=== PATIENT | male | born 1935 | race Caucasian/White ===

== ENCOUNTER 2025-05-26 00:05 | Observation (INO) ==
[2025-05-26 00:52] LABS: Hematocrit (blood only) 44.0 % (42.0-52.0); Hemoglobin 14.2 g/dL (14.0-18.0); Immature Granulocytes # (auto) 0.04 K/uL (0.01-0.20); Immature Granulocytes % (auto) 0.4 %; Mean Corpuscular Hemoglobin 26.8 pg (25.0-34.0); Mean Corpuscular Volume 83.2 fL (80.0-100.0); Platelet Count 321 K/uL (130-400); RDW Standard Deviation 42.0 fL (36.4-46.3); Red Blood Count 5.29 M/uL (4.70-6.10); White Blood Count 11.30 K/ul (4.8-10.8)
[2025-05-26 01:10] LABS: Alanine Aminotransferase 9.0 U/L (7-52); Albumin Globulin Ratio 1.4 (0.9-2); Albumin Level 4.2 gm/dl (3.4-5.0); Alkaline Phosphatase 67.0 U/L (34-104); Anion Gap 9.0 (3-11); Bilirubin,Total 0.4 mg/dl (0.2-1.0); Blood Urea Nitrogen 25.0 mg/dl (6-23); Calcium 9.0 mg/dl (8.6-10.3); Carbon Dioxide 26.0 mmol/L (21-32); Chloride 106.0 mmol/L (98-107); Creatinine Clr Calc Pharmacy 47.5 ml/min; Globulin 2.9 gm/dl (2.5-4.0); Glucose 141.0 mg/dl (70-99(Fasting)); Lipase 23.0 U/L (11-82); Potassium 3.9 mmol/L (3.5-5.1); Sodium 141.0 mmol/L (136-145); Total Protein 7.1 gm/dl (6.0-8.3)
--- NOTE | 2025-05-26 01:13 | Emergency Department Note ---
Impression & Plan Left-sided chest pain Admit to the 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 Patient was resting comfortably in a recliner. Patient's explains that the patient turned quite pale during this episode. laboratory studies revealed no leukocytosis or anemia. Renal function was normal. Glucose was 141. Troponin was unremarkable. Chest x-ray revealed some mild peribronchial cuffing but no other acute findings. EKG showed no acute findings of ischemia. Patient's pain initially subsided on its own but then returned and seem to radiate into his back. Patient was given a dose of IV fentanyl and went for CTA of the chest. Patient has a very strong family history of heart disease and given the description of symptoms by the patient's , I felt he would require further inpatient care and cardiology workup. Care/management discussed with: oncology transplant network manager and [facility] Triage Nursing notes: reviewed and agree With them. Vital Signs: reviewed and unremarkable Additional History obtained from: the patient's who is at the bedside Differential Diagnosis: cardiac ischemia, aortic dissection, STEMI, NSTEMI, costochondritis Diagnostics, independently interpreted by me: ECG: normal sinus rhythm at a rate of 61 with first-degree AV block. There is no ST segment elevation or signs of ischemia. There is no ectopy. repeat ECG: Normal sinus rhythm at a rate of 61 with first-degree AV block. There is no ST segment elevation. Slight ST segment depression in leads I and aVL Compared to original ECG Cardiac Monitoring: Sinus bradycardia at 59 Imaging studies: portable chest x-ray: mild peribronchial cuffing with no obvious consolidation or infiltrate as per my independent interpretation CTA of the chest: As per [facility] HPI: 89 year old Male arrives for evaluation of Left arm pain left chest pain. presents with a sudden onset of discomfort in his left upper arm, left shoulder and left chest that started approximately 75 minutes ago. Patient was resting comfortably in a recliner. Patient turned quite pale during this episode according to his . He denies ever having an episode like this in the past. 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 Pupils are equal, round, and reactive to light. Extraocular eye muscles are intact, and sclera are anicteric. Nose - moist nasal mucosa without discharge. Mouth - moist buccal mucosa. Oropharynx is nonerythematous and there is no tonsillar exudate or edema noted. Neck: Supple; no JVD, nuchal rigidity, cervical lymphadenopathy. Heart: Regular rate and rhythm. There is a normal S1 and S2 with no murmurs, clicks, or gallops appreciated. Lungs: Clear to auscultation bilaterally with no wheezes, rales, or rhonchi. Abdomen: Soft, completely nontender, nondistended, with good bowel sounds. There are no palpable pulsatile masses or hepatosplenomegaly. There is no guarding, rigidity, or rebound noted. Extremities: No evidence of cyanosis, clubbing, or edema. There are easily palpable peripheral pulses. Skin: warm and dry with good turgor and no rashes. Emergency department treatment: youth nutritional monitor, IV fentanyl, IV Zofran Emergency Department course: Patient was evaluated in room B-8. A complete history and physical was performed. An order was placed for continuous cardiac monitoring patient was in sinus bradycardia at a rate of 59. Twelve-lead EKG was obtained. laboratory studies were drawn as above. Portable chest x-ray was performed. Patient's chest discomfort returned and he was given a dose of IV fentanyl and IV Zofran. He went for CTA of the chest. upon repeat assessment, the patient was feeling better again. I discussed the case with the [facility] Hospitalist and they will evaluate for further inpatient care. I discussed the case with the [facility] Hospitalist and they will evaluate for further inpatient care. Past Med/Surg History Problem List (Updated 05/26/25 @ 04:04 by Mary Silva DO) Left-sided chest pain (Acute) Squamous cell carcinoma of right vocal cord (Chronic 04/28/24) Medical History Skin cancer Basal cell Diverticulosis Enlarged prostate Hematuria IBS (irritable bowel syndrome) Chronic kidney disease Fall Hoarseness Subdural hematoma Traumatic brain injury AAA (abdominal aortic aneurysm) Chronic rhinitis GERD (gastroesophageal reflux disease) Hyperlipidemia Type 2 diabetes mellitus Actinic keratosis Surgical History Status post Mohs surgery History of tonsillectomy and adenoidectomy Status post appendectomy S/P craniotomy Evacuation of subdural hematoma 12/14/23 History of surgery Left eye lower lid repair History of cystoscopy Family History Mother , 97yo Myocardial infarction Father , 42yo Myocardial infarction Brother S/P CABG x 5 Sister No problems noted. Son Diabetes Daughter No problems noted. Other Family history non-contributory Social History Smoking Status: Never smoker Second Hand Exposure: No; Do You Dip or Chew Tobacco: No; Hx Alcohol Use: No Hx Substance Use: No Preferred Language: [place] Communication Ability: Effective Visual Impairment: No Limitations Purchasing Expeditor Required: No Beliefs That Will Affect Care: None marital status: Current Living Situation: Spouse current occupational status: employed current occupation: Hand [employer] How many Children do You have: 2 Feels Safe at Home: Yes Diet: regular caffeine: No during the past year weight has: remained stable Assistive Devices: Glasses Allergies Allergies Allergy/AdvReac Type Severity Reaction Status Date / Time statins AdvReac Intermediate Muscle Pain Uncoded 07/07/24 10:53 Home Meds Home Medications Medication Instructions Recorded Confirmed No Known Home Medications 05/07/25 05/26/25 Results & Data (ED) Vital Signs Vital Signs - 24 hr 05/26/25 00:09 05/26/25 00:18 05/26/25 00:20 Temperature 36.9 C Temperature Source Temporal Artery Scan Pulse Rate 64 Pulse Rate [Apical] Pulse Rate from SpO2 Sensor Respiratory Rate 18 Respiratory Effort / Characteristics Non-Labored Spontaneous Respiratory Depth Normal Respiratory Pattern Regular Blood Pressure 148/74 H 144/98 H Blood Pressure [Right Arm] Blood Pressure Mean 98 106 Blood Pressure Mean [Right Arm] Blood Pressure Position Sitting Pulse Oximetry 96 95 Oxygen Delivery Method Room Air Room Air Sepsis Recent Fever Within 48 Hours No Sepsis New/Unexplained Change in Mental Status N/A Sepsis Action Taken by Nursing No Action Required 05/26/25 00:21 05/26/25 00:24 05/26/25 00:24 Temperature Temperature Source Pulse Rate 59 L 61 Pulse Rate [Apical] 59 L Pulse Rate from SpO2 Sensor 61 Respiratory Rate 12 15 Respiratory Effort / Characteristics Non-Labored Spontaneous Respiratory Depth Normal Respiratory Pattern Regular Blood Pressure Blood Pressure [Right Arm] 144/98 H Blood Pressure Mean Blood Pressure Mean [Right Arm] 113 Blood Pressure Position Pulse Oximetry 95 96 Oxygen Delivery Method Room Air Room Air Sepsis Recent Fever Within 48 Hours Sepsis New/Unexplained Change in Mental Status Sepsis Action Taken by Nursing 05/26/25 00:30 05/26/25 01:00 05/26/25 01:30 Temperature Temperature Source Pulse Rate 63 61 Pulse Rate [Apical] 62 Pulse Rate from SpO2 Sensor 62 61 Respiratory Rate 19 20 18 Respiratory Effort / Characteristics Non-Labored Spontaneous Respiratory Depth Normal Respiratory Pattern Regular Blood Pressure 140/72 139/72 Blood Pressure [Right Arm] 151/74 H Blood Pressure Mean 94 94 Blood Pressure Mean [Right Arm] 99 Blood Pressure Position Pulse Oximetry 96 95 96 Oxygen Delivery Method Room Air Room Air Room Air Sepsis Recent Fever Within 48 Hours Sepsis New/Unexplained Change in Mental Status Sepsis Action Taken by Nursing 05/26/25 01:30 05/26/25 02:00 05/26/25 02:18 Temperature Temperature Source Pulse Rate 62 60 67 Pulse Rate [Apical] Pulse Rate from SpO2 Sensor 63 61 66 Respiratory Rate 18 23 18 Respiratory Effort / Characteristics Respiratory Depth Respiratory Pattern Blood Pressure 151/74 H 154/81 H 145/107 H Blood Pressure [Right Arm] Blood Pressure Mean 99 105 119 Blood Pressure Mean [Right Arm] Blood Pressure Position Pulse Oximetry 96 96 91 Oxygen Delivery Method Room Air Room Air Room Air Sepsis Recent Fever Within 48 Hours Sepsis New/Unexplained Change in Mental Status Sepsis Action Taken by Nursing 05/26/25 03:00 Temperature Temperature Source Pulse Rate 64 Pulse Rate [Apical] Pulse Rate from SpO2 Sensor Respiratory Rate 19 Respiratory Effort / Characteristics Respiratory Depth Respiratory Pattern Blood Pressure 130/65 Blood Pressure [Right Arm] Blood Pressure Mean 86 Blood Pressure Mean [Right Arm] Blood Pressure Position Pulse Oximetry 96 Oxygen Delivery Method Room Air Sepsis Recent Fever Within 48 Hours Sepsis New/Unexplained Change in Mental Status Sepsis Action Taken by Nursing Laboratory Data 05/26/25 00:25 05/26/25 00:25 Lab Results 05/26/25 Range/Units 00:25 WBC 11.30 H (4.8-10.8) K/ul RBC 5.29 (4.70-6.10) M/uL Hgb 14.2 (14.0-18.0) g/dL Hct 44.0 (42.0-52.0) % MCV 83.2 (80.0-100.0) fL MCH 26.8 (25.0-34.0) pg MCHC 32.3 (32.0-36.0) g/dL RDW Std Deviation 42.0 (36.4-46.3) fL RDW Coeff of Herbert 13.9 (11.5-14.5) % Plt Count 321 (130-400) K/uL MPV 9.5 (9.4-12.4) fL Immature Gran % (Auto) 0.4 % Neut % (Auto) 74.0 % Lymph % (Auto) 13.4 % [place] % (Auto) 9.1 % Eos % (Auto) 2.7 % Baso % (Auto) 0.4 % Neut # (Auto) 8.38 H (1.40-6.50) K/uL Lymph # (Auto) 1.51 (1.20-3.40) K/uL [place] # (Auto) 1.03 H (0.11-0.59) K/uL Eos # (Auto) 0.30 (0.00-0.50) K/uL Baso # (Auto) 0.04 (0.00-0.20) K/uL Immature Gran # (Auto) 0.04 (0.01-0.20) K/uL Sodium 141 (136-145) mmol/L Potassium 3.9 (3.5-5.1) mmol/L Chloride 106 (98-107) mmol/L Carbon Dioxide 26 (21-32) mmol/L Anion Gap 9 (3-11) BUN 25 H (6-23) mg/dl Creatinine 1.03 (0.6-1.4) mg/dl Est Cr Clr Drug Dosing 47.5 ml/min eGFR 69.87 BUN/Creatinine Ratio 24.3 H (10-20) Glucose 141 H (70-99(Fasting)) mg/dl Calcium 9.0 (8.6-10.3) mg/dl Total Bilirubin 0.4 (0.2-1.0) mg/dl AST 15 (13-39) U/L ALT 9 (7-52) U/L Alkaline Phosphatase 67 (34-104) U/L Troponin I High Sens 12.9 (0-20) pg/ml Total Protein 7.1 (6.0-8.3) gm/dl Albumin 4.2 (3.4-5.0) gm/dl Globulin 2.9 (2.5-4.0) gm/dl Albumin/Globulin Ratio 1.4 (0.9-2) Lipase 23 (11-82) U/L Administered Medications Discontinued Medications Fentanyl Citrate (Fentanyl Citrate Pf 100 Mcg/2 Ml Vial) 50 mcg IV NOW STA Stop: 05/26/25 01:47 Last Admin: 05/26/25 01:56 Dose: 50 mcg Documented By: UYEN Ioversol (Optiray 320 125ml) 125 ml IV ONCE ONE Stop: 05/26/25 02:18 Last Admin: 05/26/25 02:17 Dose: 118 ml Documented By: ALONZO Ondansetron HCl (Ondansetron Inj 2 Mg/Ml 2 Ml Vial) 4 mg IV NOW STA Stop: 05/26/25 01:47 Last Admin: 05/26/25 01:56 Dose: 4 mg Documented By: UYEN Imaging Data Radiologist's Impression: Chest X-Ray 05/26/25 00:36 EXAM: XR chest 1V portable CLINICAL HISTORY: Chest pain, nonspecific TECHNIQUE: An X-ray image of the chest is obtained in AP projection. COMPARISON: No prior studies are available for comparison. FINDINGS: Pulmonary Parenchyma: Minimal minimal peribronchal thickening are identified in the right mid and the lower zones. Age-appropriate prominent bronchovascular markings are identified in both lung guan. No evidence of pleural effusion or pleural thickening. Heart and Mediastinum: Senile unfolding of the arch of aorta is identified. Senile calcification of the aortic knuckle is noted. Heart size and shape are normal. No mediastinal masses. No hilar or mediastinal lymphadenopathy. Bony Thorax: There are fracture lines of the multiple ribs on the left hemithorax without significant displacement. Bony thorax appears intact without fractures or deformities. Soft Tissues: Soft tissues overlying the chest wall are unremarkable. IMPRESSION: 1. Minimal peribronchal thickening in the right mid and the lower zones, which could be due to inflammatory etiology. Clinical correlation and follow-up are advised. 2. Multiple rib fractures on the left hemithorax without significant displacement, which are age indetermined, likely old fractures. Please correlate clinically with point of tenderness. Electronically signed by Shivam Glynn 05-26-2025 02:17 AM Chest CTA 05/26/25 01:46 EXAM: CT angio chest dissec wo/w con CLINICAL HISTORY: chest pain TECHNIQUE: Contiguous axial images were obtained from the neck base through the upper abdomen without contrast and following intravenous administration of iodinated contrast material. Angiographic images were processed, 3D MIP images were acquired for interpretation. If IV contrast material had not been administered, the likelihood of detecting abnormalities relevant to the patient's condition would have been substantially decreased. Coronal and sagittal 3-D MIPs were likewise performed and indicated to increase the sensitivity of detectin diffuse clinically relevant pathology. CT scan was performed according to ALARA (as low as reasonably achievable). COMPARISON: None. FINDINGS: Mild dilatation of pulmonary trunk ,bilateral main pulmonary artery up to subsegmental level with mild tortuosity - suggest possibility of pulmonary arterial hypertension. Few atelectatic bands are noted involving bilateral lung bases. Adequate contrast bolus without evidence of pulmonary embolism. The central airways are patent.. No pleural effusion. The heart, aorta, and pulmonary arteries are of normal size and configuration. There are no appreciable coronary artery and aortic atherosclerotic calcifications. No pericardial effusion is identified. The thyroid is unremarkable. No mediastinal, hilar, or axillary lymphadenopathy is noted. No suspicious lytic or sclerotic osseous lesions are identified. IMPRESSION: Mild dilatation of pulmonary trunk ,bilateral main pulmonary artery up to subsegmental level with mild tortuosity - suggest possibility of pulmonary arterial hypertension. Few atelectatic bands are noted involving bilateral lung bases. No obvious pulmonary embolism. No obvious aortic dissection/aneurysm. Electronically signed by Chau West 05-26-2025 03:16 AM Discharge Plan Visit Data Chief Complaint: Chest Pain Stated Complaint: chest pain, left houlder pain ED Provider: Mary Silva Discharge Problem: Left-sided chest pain Condition: Serious Forms Stand Alone Forms: [employer] Prescriptions Prescriptions: No Action No Known Home Medications Referrals Referrals: Sulman,Wesley A., DO [Primary Care Provider] -
[2025-05-26] MEDS: ONDANSETRON INJ 2 MG/ML 2 ML VIAL IV STA (01:56)
[2025-05-26] MEDS: OPTIRAY 320 125ml IV ONE (02:17)
--- NOTE | 2025-05-26 02:17 | XRay Report ---
EXAM: XR chest 1V portable CLINICAL HISTORY: Chest pain, nonspecific TECHNIQUE: An X-ray image of the chest is obtained in AP projection. COMPARISON: No prior studies are available for comparison. FINDINGS: Pulmonary Parenchyma: Minimal minimal peribronchal thickening are identified in the right mid and the lower zones. Age-appropriate prominent bronchovascular markings are identified in both lung guan. No evidence of pleural effusion or pleural thickening. Heart and Mediastinum: Senile unfolding of the arch of aorta is identified. Senile calcification of the aortic knuckle is noted. Heart size and shape are normal. No mediastinal masses. No hilar or mediastinal lymphadenopathy. Bony Thorax: There are fracture lines of the multiple ribs on the left hemithorax without significant displacement. Bony thorax appears intact without fractures or deformities. Soft Tissues: Soft tissues overlying the chest wall are unremarkable. IMPRESSION: 1. Minimal peribronchal thickening in the right mid and the lower zones, which could be due to inflammatory etiology. Clinical correlation and follow-up are advised. 2. Multiple rib fractures on the left hemithorax without significant displacement, which are age indetermined, likely old fractures. Please correlate clinically with point of tenderness. Electronically signed by Shivam Glynn 05-26-2025 02:17 AM
--- NOTE | 2025-05-26 03:17 | CT Scan Report ---
EXAM: CT angio chest dissec wo/w con CLINICAL HISTORY: chest pain TECHNIQUE: Contiguous axial images were obtained from the neck base through the upper abdomen without contrast and following intravenous administration of iodinated contrast material. Angiographic images were processed, 3D MIP images were acquired for interpretation. If IV contrast material had not been administered, the likelihood of detecting abnormalities relevant to the patient's condition would have been substantially decreased. Coronal and sagittal 3-D MIPs were likewise performed and indicated to increase the sensitivity of detectin diffuse clinically relevant pathology. CT scan was performed according to ALARA (as low as reasonably achievable). COMPARISON: None. FINDINGS: Mild dilatation of pulmonary trunk ,bilateral main pulmonary artery up to subsegmental level with mild tortuosity - suggest possibility of pulmonary arterial hypertension. Few atelectatic bands are noted involving bilateral lung bases. Adequate contrast bolus without evidence of pulmonary embolism. The central airways are patent.. No pleural effusion. The heart, aorta, and pulmonary arteries are of normal size and configuration. There are no appreciable coronary artery and aortic atherosclerotic calcifications. No pericardial effusion is identified. The thyroid is unremarkable. No mediastinal, hilar, or axillary lymphadenopathy is noted. No suspicious lytic or sclerotic osseous lesions are identified. IMPRESSION: Mild dilatation of pulmonary trunk ,bilateral main pulmonary artery up to subsegmental level with mild tortuosity - suggest possibility of pulmonary arterial hypertension. Few atelectatic bands are noted involving bilateral lung bases. No obvious pulmonary embolism. No obvious aortic dissection/aneurysm. Electronically signed by Chau West 05-26-2025 03:16 AM
--- NOTE | 2025-05-26 05:47 | History & Physical Report ---
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 Tonight around 8 PM patient was sitting in his recliner when he noticed left shoulder pain it was coming down to the left side of the chest. He tried to walk hoping the chest pain will go away but it did not subsided when he decided to come to the ER. His EKG and troponins unremarkable. Initially his chest pain subsided on its own. But then chest pain came back and was radiating to his back. ER gave a dose of IV fentanyl and CTA chest was done. CTA chest came back unremarkable. With the pain medication pain is currently resolved but seems to be coming back. Denies any shortness of breath. Currently no cough. No nausea. No sweating. No dizziness. No runny nose. Appetite is okay. No abdominal pain. Normal bowel and bladder movements. Ambulated in the ER room okay. Resting comfortably and hemodynamics are okay. is in the room. Chest pain EKG and initial troponin negative CTA chest unremarkable except suggesting possibility of pulmonary arterial hypertension Will observe in med/telemetry Will follow serial cardiac enzymes and echo N.p.o. 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 Status post radiation treatment History of fall and subdural hematoma in November 2023 Status post craniotomy and evacuation DVT prophylaxis SCDs Disposition Observation med/telemetry Full code History of Present Illness Chief Complaint: Chest pain Primary Care Provider: Wesley Sales DO 89-year-old male with past medical history significant for type 2 diabetes cu rrently not on any medication, dyslipidemia intolerant to statin, abdominal aortic aneurysm, history of fall in his barn in November 2023 causing subdural hematoma and was life flighted to [place] status post craniectomy and excavation of the hematoma, 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 Tonight around 8 PM patient was sitting in his recliner when he noticed left shoulder pain it was coming down to the left side of the chest. He tried to walk hoping the chest pain will go away but it did not subsided when he decided to come to the ER. His EKG and troponins unremarkable. Initially his chest pain subsided on its own. But then chest pain came back and was radiating to his back. ER gave a dose of IV fentanyl and CTA chest was done. CTA chest came back unremarkable. With the pain medication pain is currently resolved but seems to be coming back. Denies any shortness of breath. Currently no cough. No nausea. No sweating. No dizziness. No runny nose. Appetite is okay. No abdominal pain. Normal bowel and bladder movements. Ambulated in the ER room okay. Resting comfortably and hemodynamics are okay. is in the room. Past medical history. As mentioned above. Past surgical history. Cystoscopy. Left eye lower lid repair. Left craniotomy and evacuation of subdural hematoma November 2023. Laryngoscopic biopsy in April 2024. Appendectomy 1949. Tonsillectomy and adenoidectomy. Social history. . No smoking. Alcohol rarely. No drug use. Family history. Mother had chronic rhinitis. Father had MD at age of 42. Paternal grandfather had diabetes. Allergies Allergy/AdvReac Type Severity Reaction Status Date / Time [id number]-[id number] Reductase AdvReac Intermediate Muscle Pain Verified 05/26/25 06:23 Inhibitor Home Medications Medication Instructions Recorded Confirmed Type No Known Home Medications 05/07/25 05/26/25 History Past Med/Surg History Problem List (Updated 05/26/25 @ 04:04 by Mary Silva DO) Left-sided chest pain (Acute) Squamous cell carcinoma of right vocal cord (Chronic 04/28/24) Medical History Skin cancer Basal cell Diverticulosis Enlarged prostate Hematuria IBS (irritable bowel syndrome) Chronic kidney disease Fall Hoarseness Subdural hematoma Traumatic brain injury AAA (abdominal aortic aneurysm) Chronic rhinitis GERD (gastroesophageal reflux disease) Hyperlipidemia Type 2 diabetes mellitus Actinic keratosis Surgical History Status post Mohs surgery History of tonsillectomy and adenoidectomy Status post appendectomy S/P craniotomy Evacuation of subdural hematoma 12/14/23 History of surgery Left eye lower lid repair History of cystoscopy Family History Mother , 97yo Myocardial infarction Father , 42yo Myocardial infarction Brother S/P CABG x 5 Sister No problems noted. Son Diabetes Daughter No problems noted. Other Family history non-contributory Social History Smoking Status: Never smoker Second Hand Exposure: No; Do You Dip or Chew Tobacco: No; Hx Alcohol Use: No Hx Substance Use: No Preferred Language: Nepali Communication Ability: Effective Visual Impairment: No Limitations Strategy Planning Consultant Required: No Beliefs That Will Affect Care: None marital status: Current Living Situation: Spouse current occupational status: employed current occupation: [employer] How many Children do You have: 2 Feels Safe at Home: Yes Diet: regular caffeine: No during the past year weight has: remained stable Assistive Devices: Glasses Review of Systems Review of Systems: All systems reviewed & are unremarkable except as noted in HPI & below Physical Exam Physical Exam: General- Not in distress Head- atraumatic Eyes- PERRL. ENT- oropharynx clear Neck- supple, no JVD. Lungs- clear to auscultation no wheezing or crackles Heart- regular rhythm; no murmur, no gallop. Abdomen- normal bowel sounds, soft, nontender, no distension Extremities- no pretibial edema, no erythema seen Neuro- alert, oriented PERRL, no facial palsy; no dysarthria; moves extremities Results & Data Results & Data Vital Signs (Past 12 Hours) Vital Signs Temp Pulse Pulse Resp BP BP Pulse Ox 05/26/25 05:00 69 18 121/67 94 05/26/25 04:37 66 05/26/25 04:30 67 20 114/65 94 05/26/25 04:00 64 20 118/67 91 05/26/25 03:30 63 20 112/60 92 05/26/25 03:00 64 19 130/65 96 05/26/25 02:18 67 18 145/107 H 91 05/26/25 02:00 60 23 154/81 H 96 05/26/25 01:30 62 18 151/74 H 96 05/26/25 01:30 62 18 151/74 H 96 05/26/25 01:00 61 20 139/72 95 05/26/25 00:30 63 19 140/72 96 05/26/25 00:24 61 15 96 05/26/25 00:24 59 L 12 144/98 H 95 05/26/25 00:21 59 L 05/26/25 00:20 95 05/26/25 00:18 144/98 H 05/26/25 00:09 36.9 C 64 18 148/74 H 96 O2 Del Method 05/26/25 05:00 Room Air 05/26/25 04:37 05/26/25 04:30 Room Air 05/26/25 04:00 Room Air 05/26/25 03:30 Room Air 05/26/25 03:00 Room Air 05/26/25 02:18 Room Air 05/26/25 02:00 Room Air 05/26/25 01:30 Room Air 05/26/25 01:30 Room Air 05/26/25 01:00 Room Air 05/26/25 00:30 Room Air 05/26/25 00:24 Room Air 05/26/25 00:24 Room Air 05/26/25 00:21 05/26/25 00:20 Room Air 05/26/25 00:18 05/26/25 00:09 Room Air Diagnostic Findings Laboratory Results WBC 11.30 K/ul (4.8-10.8) H 05/26/25 00:25 RBC 5.29 M/uL (4.70-6.10) 05/26/25 00:25 Hgb 14.2 g/dL (14.0-18.0) 05/26/25 00:25 Hct 44.0 % (42.0-52.0) 05/26/25 00:25 MCV 83.2 fL (80.0-100.0) 05/26/25 00:25 MCH 26.8 pg (25.0-34.0) 05/26/25 00:25 MCHC 32.3 g/dL (32.0-36.0) 05/26/25 00:25 RDW Std Deviation 42.0 fL (36.4-46.3) 05/26/25 00:25 RDW Coeff of Herbert 13.9 % (11.5-14.5) 05/26/25 00:25 Plt Count 321 K/uL (130-400) 05/26/25 00:25 MPV 9.5 fL (9.4-12.4) 05/26/25 00:25 Immature Gran % (Auto) 0.4 % 05/26/25 00:25 Neut % (Auto) 74.0 % 05/26/25 00:25 Lymph % (Auto) 13.4 % 05/26/25 00:25 Mineral % (Auto) 9.1 % 05/26/25 00:25 Eos % (Auto) 2.7 % 05/26/25 00:25 Baso % (Auto) 0.4 % 05/26/25 00:25 Neut # (Auto) 8.38 K/uL (1.40-6.50) H 05/26/25 00:25 Lymph # (Auto) 1.51 K/uL (1.20-3.40) 05/26/25 00:25 Mineral # (Auto) 1.03 K/uL (0.11-0.59) H 05/26/25 00:25 Eos # (Auto) 0.30 K/uL (0.00-0.50) 05/26/25 00:25 Baso # (Auto) 0.04 K/uL (0.00-0.20) 05/26/25 00:25 Immature Gran # (Auto) 0.04 K/uL (0.01-0.20) 05/26/25 00:25 Sodium 141 mmol/L (136-145) 05/26/25 00:25 Potassium 3.9 mmol/L (3.5-5.1) 05/26/25 00:25 Chloride 106 mmol/L (98-107) 05/26/25 00:25 Carbon Dioxide 26 mmol/L (21-32) 05/26/25 00:25 Anion Gap 9 (3-11) 05/26/25 00:25 BUN 25 mg/dl (6-23) H 05/26/25 00:25 Creatinine 1.03 mg/dl (0.6-1.4) 05/26/25 00:25 Est Cr Clr Drug Dosing 47.5 ml/min 05/26/25 00:25 eGFR 69.87 05/26/25 00:25 BUN/Creatinine Ratio 24.3 (10-20) H 05/26/25 00:25 Glucose 141 mg/dl (70-99(Fasting)) H 05/26/25 00:25 Calcium 9.0 mg/dl (8.6-10.3) 05/26/25 00:25 Total Bilirubin 0.4 mg/dl (0.2-1.0) 05/26/25 00:25 AST 15 U/L (13-39) 05/26/25 00:25 ALT 9 U/L (7-52) 05/26/25 00:25 Alkaline Phosphatase 67 U/L (34-104) 05/26/25 00:25 Troponin I High Sens 25.3 pg/ml (0-20) H D 05/26/25 04:59 Total Protein 7.1 gm/dl (6.0-8.3) 05/26/25 00:25 Albumin 4.2 gm/dl (3.4-5.0) 05/26/25 00:25 Globulin 2.9 gm/dl (2.5-4.0) 05/26/25 00:25 Albumin/Globulin Ratio 1.4 (0.9-2) 05/26/25 00:25 Lipase 23 U/L (11-82) 05/26/25 00:25 Impressions Chest X-Ray 05/26/25 00:36 EXAM: XR chest 1V portable CLINICAL HISTORY: Chest pain, nonspecific TECHNIQUE: An X-ray image of the chest is obtained in AP projection. COMPARISON: No prior studies are available for comparison. FINDINGS: Pulmonary Parenchyma: Minimal minimal peribronchal thickening are identified in the right mid and the lower zones. Age-appropriate prominent bronchovascular markings are identified in both lung guan. No evidence of pleural effusion or pleural thickening. Heart and Mediastinum: Senile unfolding of the arch of aorta is identified. Senile calcification of the aortic knuckle is noted. Heart size and shape are normal. No mediastinal masses. No hilar or mediastinal lymphadenopathy. Bony Thorax: There are fracture lines of the multiple ribs on the left hemithorax without significant displacement. Bony thorax appears intact without fractures or deformities. Soft Tissues: Soft tissues overlying the chest wall are unremarkable. IMPRESSION: 1. Minimal peribronchal thickening in the right mid and the lower zones, which could be due to inflammatory etiology. Clinical correlation and follow-up are advised. 2. Multiple rib fractures on the left hemithorax without significant displacement, which are age indetermined, likely old fractures. Please correlate clinically with point of tenderness. Electronically signed by Shivam Glynn 05-26-2025 02:17 AM Chest CTA 05/26/25 01:46 EXAM: CT angio chest dissec wo/w con CLINICAL HISTORY: chest pain TECHNIQUE: Contiguous axial images were obtained from the neck base through the upper abdomen without contrast and following intravenous administration of iodinated contrast material. Angiographic images were processed, 3D MIP images were acquired for interpretation. If IV contrast material had not been administered, the likelihood of detecting abnormalities relevant to the patient's condition would have been substantially decreased. Coronal and sagittal 3-D MIPs were likewise performed and indicated to increase the sensitivity of detectin diffuse clinically relevant pathology. CT scan was performed according to ALARA (as low as reasonably achievable). COMPARISON: None. FINDINGS: Mild dilatation of pulmonary trunk ,bilateral main pulmonary artery up to subsegmental level with mild tortuosity - suggest possibility of pulmonary arterial hypertension. Few atelectatic bands are noted involving bilateral lung bases. Adequate contrast bolus without evidence of pulmonary embolism. The central airways are patent.. No pleural effusion. The heart, aorta, and pulmonary arteries are of normal size and configuration. There are no appreciable coronary artery and aortic atherosclerotic calcifications. No pericardial effusion is identified. The thyroid is unremarkable. No mediastinal, hilar, or axillary lymphadenopathy is noted. No suspicious lytic or sclerotic osseous lesions are identified. IMPRESSION: Mild dilatation of pulmonary trunk ,bilateral main pulmonary artery up to subsegmental level with mild tortuosity - suggest possibility of pulmonary arterial hypertension. Few atelectatic bands are noted involving bilateral lung bases. No obvious pulmonary embolism. No obvious aortic dissection/aneurysm. Electronically signed by Chau West 05-26-2025 03:16 AM ECG Additional Comments: ECG. Sinus rhythm with first-degree AV block at rate of 61. Minimal voltage care for LVH. Nonspecific ST abnormalities. No significant change was found. Code Status & VTE Plan VTE Prophylaxis Plan VTE Prophylaxis will be ordered: Yes
[2025-05-26] MEDS ORDERED: MoRPHine SULFATE 2 MG/ML CARP IV PRN (06:21)
[2025-05-26] MEDS ORDERED: NITROGLYCERIN SL 0.4 MG/TAB TAB SL PRN (06:21)
[2025-05-26] MEDS ORDERED: ACETAMINOPHEN 325 MG TAB PO PRN (06:21)
[2025-05-26] MEDS ORDERED: POLYETHYLENE (MIRALAX) 17 GM PACK PO PRN (06:21)
[2025-05-26 08:50] VITALS: RESP 18
--- NOTE | 2025-05-26 10:52 | XCELERA ---
[id number] \\[email or web address]_[id number]
[2025-05-26 11:41] LABS: Hemoglobin A1C 6.8 % (4.5-5.6)
[2025-05-26 11:42] LABS: Cholesterol 212.0 mg/dl (0-200); HDL Cholesterol 39.0 mg/dl; Triglycerides 73.0 mg/dl (0-150)
--- NOTE | 2025-05-26 12:02 | Cardiology Consultation ---
Date of Consultation May 26, 2025 Assessment & Plan (1) Left-sided chest pain: (2) Elevated troponin: (3) HTN, goal below 130/80: (4) Dyslipidemia, goal LDL below 70: (5) Coronary atherosclerosis: (6) Family history of ischemic heart disease: Plan 89-year-old male admitted with atypical resting left shoulder discomfort radiating into the chest. - EKGs without acute ST segment change though with nonspecific STT wave abnormality. - High-sensitivity troponin minimally elevated. - Resting echocardiography with preserved LV systolic function without regional wall motion abnormality. - CT imaging of the chest notable for significant coronary atherosclerosis as per my interpretation. - Patient chronically with significantly elevated LDL cholesterol, type 2 diabetes mellitus, family history of ischemic heart disease. Recommendations: Maintain NPO status, stress testing versus diagnostic cardiac catheterization discussed, pending serial troponin, evaluation and discussion with Dr. Hermosillo. Supervising Physician Co-Signing Physician Notes I have personally performed a history and physical examination on the patient. I have reviewed the advance practitioner's documentation, and I agree with, and take responsibility for the plan of care. 89-year-old male presents to the emergency department with left shoulder, posterior cervical, and interscapular discomfort. Discomfort began at home persisting for approximately 2 hours prior to arrival in the emergency department. Initial ECG and high-sensitivity troponin within normal limits. Bedside echocardiogram without regional wall motion abnormality. His second high-sensitivity troponin was minimally elevated however third set is returned to normal range. Shoulder and interscapular discomfort has resolved although the duration of the pain was nearly 8 hours. Currently pain-free. Denies fever or chills however notes cough with daily sputum production. Reports sinus congestion. No sick contacts. Denies personal history of coronary disease, however, coronary calcifications noted on CT. Recommend further ischemic evaluation. Invasive versus noninvasive approach reviewed with patient and family at bedside. Patient prefers to avoid invasive strategy at this time. Agreeable to Lexiscan nuclear stress test which will be performed in the a.m. 05/27/2025. Documented statin intolerance. Recommend addition of low-dose aspirin due to presence of coronary calcifications on CT. Consider addition of PCSK9 and inhibitor as an outpatient. Further recommendations pending review of stress test results. Contreras Hermosillo DO, [facility] History of Present Illness Reason for Consultation: Chest pain Requesting Physician: [facility], Dr. Chiang Attending Physician: [facility], Dr. Dre Vogt MD History of Present Illness Mr. Vern Kemp is a very pleasant 89-year-old male who was sitting in his recliner in the evening of May 25, 2025 when he began to experience significant left shoulder pain. He describes the discomfort as a "muscle that was overworked." Moving the left upper extremity around did not seem to aggravate or alleviate the discomfort that was at times tender to touch last night but not today. The discomfort radiated into the left chest area, across the sternum some, and into the upper posterior back. He denies associated shortness of breath, nausea, or diaphoresis however his noted that he looked a little pale at that time. EKG on presentation revealed nonspecific findings. Initial high-sensitivity troponin was normal at 12.9 pg/mL. In the ER patient received IV fentanyl with improvement in discomfort which has waxed and waned, currently present to a mild degree. Follow-up EKGs unchanged. The second high-sensitivity troponin was elevated at 25.3 pg/mL. The 3rd troponin is currently pending. Chest x-ray was interpreted by the radiologist as revealing minimal peribronchial thickening in the right mid and lower zones, also revealing multiple rib fractures on the left hemothorax, without significant displacement. CTA of the chest negative for acute aortic injury or PE. Resting echocardiography this morning revealed preserved LV systolic function without regional wall motion abnormality. 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 Father with an AK at 42. Brother with CAD status post CABG x 4 at [facility]. Sister without cardiac issues. Social History: Never smoker. Never smokeless tobacco user. No alcohol. No illegal drug use. . Son Godwin and [id number] present for entire consultation. Allergies Allergy/AdvReac Type Severity Reaction Status Date / Time [id number] Reductase AdvReac Intermediate Muscle Pain Verified 05/26/25 06:23 Inhibitor Home Medications Medication Instructions Recorded Confirmed Type No Known Home Medications 05/07/25 05/26/25 History Patient History Medical History Skin cancer Basal cell Diverticulosis Enlarged prostate Hematuria IBS (irritable bowel syndrome) Chronic kidney disease Fall Hoarseness Subdural hematoma Traumatic brain injury AAA (abdominal aortic aneurysm) Chronic rhinitis GERD (gastroesophageal reflux disease) Hyperlipidemia Type 2 diabetes mellitus Actinic keratosis Surgical History Status post Mohs surgery History of tonsillectomy and adenoidectomy Status post appendectomy S/P craniotomy Evacuation of subdural hematoma 12/14/23 History of surgery Left eye lower lid repair History of cystoscopy Family History Mother , 97yo Myocardial infarction Father , 42yo Myocardial infarction Brother S/P CABG x 5 Sister No problems noted. Son Diabetes Daughter No problems noted. Other Family history non-contributory Social History Smoking Status: Never smoker Second Hand Exposure: No; Do You Dip or Chew Tobacco: No; Hx Alcohol Use: No Hx Substance Use: No Preferred Language: Albanian Communication Ability: Effective Visual Impairment: No Limitations Seismology Technical Officer Required: No Beliefs That Will Affect Care: None marital status: Current Living Situation: Spouse current occupational status: employed current occupation: [employer] How many Children do You have: 2 Feels Safe at Home: Yes Diet: regular caffeine: No during the past year weight has: remained stable Assistive Devices: Glasses Review of Systems Review of Systems: Complete Review of Systems is as stated above, negative, or noncontributory Physical Exam Physical Exam: General: A&Ox3. NAD. HENT: Normocephalic. Atraumatic. Eyes: PER. Conjunctiva pink, sclera clear. Neck: Carotid bruits. No JVD. No HJR. Heart: RRR. Grade II/ systolic murmur at the lower left sternal border. Lungs: Clear to auscultation. Abdomen: +BS. Soft. Nontender. No masses or organomegaly. Extremities: No clubbing, cyanosis, or edema. Limited neurological examination is without focal deficits. Pulses: radial=2/4, posterior tibial=2/4. Results & Data Vital Signs (Past 12 Hours) Vital Signs Temp Pulse Pulse Pulse Resp BP BP 05/26/25 11:38 36.6 C 57 L 18 108/64 05/26/25 11:07 05/26/25 11:07 36.6 C 59 L 114/65 05/26/25 08:49 36.6 C 74 18 119/72 05/26/25 06:55 70 05/26/25 06:30 66 16 105/63 05/26/25 06:21 05/26/25 06:00 65 19 103/59 L 05/26/25 05:30 69 20 120/68 05/26/25 05:00 69 18 121/67 05/26/25 04:37 66 05/26/25 04:30 67 20 114/65 05/26/25 04:00 64 20 118/67 05/26/25 03:30 63 20 112/60 05/26/25 03:00 64 19 130/65 05/26/25 02:18 67 18 145/107 H 05/26/25 02:00 60 23 154/81 H 05/26/25 01:30 62 18 151/74 H 05/26/25 01:30 62 18 151/74 H 05/26/25 01:00 61 20 139/72 05/26/25 00:30 63 19 140/72 05/26/25 00:24 61 15 05/26/25 00:24 59 L 12 144/98 H 05/26/25 00:21 59 L 05/26/25 00:20 05/26/25 00:18 144/98 H 05/26/25 00:09 36.9 C 64 18 148/74 H Pulse Ox Pulse Ox O2 Del Method O2 Del Method 05/26/25 11:38 94 Room Air 05/26/25 11:07 Room Air 05/26/25 11:07 93 Room Air 05/26/25 08:49 92 Room Air 05/26/25 06:55 05/26/25 06:30 92 Room Air 05/26/25 06:21 92 Room Air 05/26/25 06:00 92 Room Air 05/26/25 05:30 92 Room Air 05/26/25 05:00 94 Room Air 05/26/25 04:37 05/26/25 04:30 94 Room Air 05/26/25 04:00 91 Room Air 05/26/25 03:30 92 Room Air 05/26/25 03:00 96 Room Air 05/26/25 02:18 91 Room Air 05/26/25 02:00 96 Room Air 05/26/25 01:30 96 Room Air 05/26/25 01:30 96 Room Air 05/26/25 01:00 95 Room Air 05/26/25 00:30 96 Room Air 05/26/25 00:24 96 Room Air 05/26/25 00:24 95 Room Air 05/26/25 00:21 05/26/25 00:20 95 Room Air 05/26/25 00:18 05/26/25 00:09 96 Room Air Laboratory Results Cardiac Enzymes 05/26/25 05/26/25 05/26/25 Range/Units 00:25 04:59 10:52 AST 15 (13-39) U/L Troponin I High Sens 12.9 25.3 H D 17.5 D (0-20) pg/ml Lipids 05/26/25 Range/Units 10:52 Triglycerides 73 (0-150) mg/dl Cholesterol 212 H (0-200) mg/dl HDL Cholesterol 39 mg/dl Cholesterol/HDL Ratio 5.4 H (0-5) CBC 05/26/25 Range/Units 00:25 WBC 11.30 H (4.8-10.8) K/ul RBC 5.29 (4.70-6.10) M/uL Hgb 14.2 (14.0-18.0) g/dL Hct 44.0 (42.0-52.0) % Plt Count 321 (130-400) K/uL Neut # (Auto) 8.38 H (1.40-6.50) K/uL Lymph # (Auto) 1.51 (1.20-3.40) K/uL [place] # (Auto) 1.03 H (0.11-0.59) K/uL Eos # (Auto) 0.30 (0.00-0.50) K/uL Baso # (Auto) 0.04 (0.00-0.20) K/uL Comprehensive Metabolic Panel 05/26/25 Range/Units 00:25 Sodium 141 (136-145) mmol/L Potassium 3.9 (3.5-5.1) mmol/L Chloride 106 (98-107) mmol/L Carbon Dioxide 26 (21-32) mmol/L BUN 25 H (6-23) mg/dl Creatinine 1.03 (0.6-1.4) mg/dl Glucose 141 H (70-99(Fasting)) mg/dl Calcium 9.0 (8.6-10.3) mg/dl AST 15 (13-39) U/L ALT 9 (7-52) U/L Alkaline Phosphatase 67 (34-104) U/L Total Protein 7.1 (6.0-8.3) gm/dl Albumin 4.2 (3.4-5.0) gm/dl Intake and Output 05/25/25 05/26/25 05/26/25 22:59 06:59 14:59 Other: Weight 67.7 kg Weight Measurement Method Chair Scale Diagnostic Findings LDL cholesterol 182 mg/dL on 10/15/2024 May 26, 2025 TTE ([facility], Dr. Hermosillo): Left ventricular ejection fraction 60 to 65%. Mild concentric LVH. LV wall motion normal. Mild aortic valve sclerosis without significant stenosis. Mild aortic regurgitation. Trace significant coronary mitral regurgitation. Mild tricuspid regurgitation. Doppler findings do not suggest pulmonary hypertension. Grade [address] imaging of the chest notable for significant coronary atherosclerosis as per my interpretation PG Care Time/CCT Total # of Minutes Spent Total Time Spent with Patient: Total time spent is greater than 50% in coordination of care (as documented) at patient's floor/unit and/or counseling patient: Coding Level of Care Code 08985 INT INP/OBS CARE 3/75MIN Diagnoses Left-sided chest pain R07.9 Elevated troponin R79.89 HTN, goal below 130/80 I10 Dyslipidemia, goal LDL below 70 E78.5 Coronary atherosclerosis I25.10 Family history of ischemic heart disease Z82.49
--- NOTE | 2025-05-26 14:11 | Communication Note ---
Date of Service: May 26, 2025 89-year-old male with PMH of T2DM not on medication, HLD intolerant to statin, AAA, [place] November 2023 causing subdural hematoma/ life flighted to [place] status post craniectomy and evacuation of hematoma, squamous cell carcinoma of right vocal cord status postradiation treatment [last radiation was in July 2024]/currently not on any immune medications presents with complaint of chest pain that started at rest w/ radiation to left shoulder and upper back. He received fentanyl in the ED which relieved his chest pain. He is being darin ged for the following: Chest pain, ro acute coronary syndrome Patient comes in with chest pain see above. Patient denies burning sensation or reflux symptoms, denies flulike illness or sick contacts in the recent past. Admitting CTA chest negative for PE, negative for aortic dissection/aneurysm, negative for pneumonia. Troponin minimally up trended but then normalized. EKG with no acute ST or T changes. Echo with EF of 60 to 65%, left ventricle wall motion normal. Patient is chest pain-free for now. Discussed with cardiology, plan for stress test today. Other chronic medical conditions: Continue with/resume home meds as when able. Diabetes: Currently diet controlled, A1c of 6.8. Hyperlipidemia: Intolerance to statin. LDL of 158. Squamous cell carcinoma of the right vocal cord: Status post radiation treatment Fall and subdural hematoma November 2023: Status post craniectomy and evacuation DVT prophylaxis: SCDs Full code On exam: Patient on room air, heart/lung/abdominal examination fairly WNL. For detailed information on the patient, reported today's H&P note.
--- NOTE | 2025-05-26 15:20 | Electrocardiogram Report ---
Test Reason : Blood Pressure : */* mmHG Vent. Rate : 61 BPM Atrial Rate : 61 BPM P-R Int : 288 ms QRS Dur : 96 ms QT Int : 424 ms P-R-T Axes : 29 -16 48 degrees QTcB Int : 426 ms Sinus rhythm with 1st degree A-V block Minimal voltage criteria for LVH, may be normal variant ( R in aVL ) Nonspecific ST abnormality Abnormal ECG When compared with ECG of 26-May-2025 00:16, (unconfirmed) No significant change was found Confirmed by Sanket Joy ([id number]) on 05/26/2025 3:20:06 PM Referred By: REFERRED SELF Confirmed By: Sanket Joy
--- NOTE | 2025-05-26 15:20 | Electrocardiogram Report ---
Test Reason : Blood Pressure : */* mmHG Vent. Rate : 61 BPM Atrial Rate : 61 BPM P-R Int : 254 ms QRS Dur : 100 ms QT Int : 418 ms P-R-T Axes : 42 -13 58 degrees QTcB Int : 420 ms Sinus rhythm with 1st degree A-V block Otherwise normal ECG When compared with ECG of 14-Dec-2023 13:01, Nonspecific T wave abnormality, improved in Inferior leads Confirmed by Sanket Joy ([id number]) on 05/26/2025 3:20:00 PM Referred By: REFERRED SELF Confirmed By: Sanket Joy
--- NOTE | 2025-05-26 15:25 | Electrocardiogram Report ---
Test Reason : Blood Pressure : */* mmHG Vent. Rate : 71 BPM Atrial Rate : 71 BPM P-R Int : 236 ms QRS Dur : 92 ms QT Int : 408 ms P-R-T Axes : 66 -23 51 degrees QTcB Int : 443 ms Sinus rhythm with 1st degree A-V block Minimal voltage criteria for LVH, may be normal variant ( R in aVL ) Borderline ECG When compared with ECG of 26-May-2025 01:50, (unconfirmed) No significant change was found Confirmed by Sanket Joy ([id number]) on 05/26/2025 3:24:38 PM Referred By: REFERRED SELF Confirmed By: Sanket Joy
[2025-05-26 17:17] LABS: Influenza A virus by PCR Negative (Neg); Influenza B virus by PCR Negative (Neg); SARS CoV2 RNA(COVID-19) Ceph NEGATIVE (Negative)
[2025-05-26] MEDS: ASPIRIN 81 MG CHEW PO SCH (17:28)
[2025-05-27 06:49] LABS: Hematocrit (blood only) 36.7 % (42.0-52.0); Hemoglobin 11.9 g/dL (14.0-18.0); Immature Granulocytes # (auto) 0.03 K/uL (0.01-0.20); Immature Granulocytes % (auto) 0.5 %; Mean Corpuscular Hemoglobin 26.9 pg (25.0-34.0); Mean Corpuscular Volume 83.0 fL (80.0-100.0); Platelet Count 270 K/uL (130-400); RDW Standard Deviation 42.1 fL (36.4-46.3); Red Blood Count 4.42 M/uL (4.70-6.10); White Blood Count 6.40 K/ul (4.8-10.8)
[2025-05-27 07:19] LABS: Anion Gap 7.0 (3-11); Blood Urea Nitrogen 26.0 mg/dl (6-23); Calcium 8.6 mg/dl (8.6-10.3); Carbon Dioxide 25.0 mmol/L (21-32); Chloride 106.0 mmol/L (98-107); Glucose 112.0 mg/dl (70-99(Fasting)); Magnesium 2.0 mg/dl (1.7-2.4); Potassium 4.0 mmol/L (3.5-5.1); Sodium 138.0 mmol/L (136-145)
[2025-05-27 07:24] LABS: Creatinine Clr Calc Pharmacy 39.3 ml/min
[2025-05-27 08:07] VITALS: BP 110/59; TEMP 98.1; O2SAT 94
--- NOTE | 2025-05-27 09:49 | Cardiology Progress Note ---
Date of Service May 27, 2025 Assessment & Plan (1) Left-sided chest pain: (2) Elevated troponin: (3) HTN, goal below 130/80: (4) Dyslipidemia, goal LDL below 70: (5) Coronary atherosclerosis: (6) Family history of ischemic heart disease: Plan 89-year-old male admitted with atypical resting left shoulder discomfort radiating into the chest. - EKGs without acute ST segment change though with nonspecific STT wave abnormality. - High-sensitivity troponin 12.9 -> 25.3 -> 17.5 -> 13.7 pg/mL - Resting echocardiography with preserved LV systolic function without regional wall motion abnormality. - CT imaging of the chest notable for significant coronary atherosclerosis. - Patient with dyslipidemia intolerant to statins, type 2 diabetes mellitus, and family history of ischemic heart disease. - Mild resting bradycardia noted throughout hospitalization - Blood pressure acceptably controlled without antihypertensive therapies. - Patient with documented statin intolerance. Recommendations: * Lexiscan nuclear stress testing today. * Further recommendations pending review of stress test results. * Aspirin 81 mg/day added this admission * Consider addition of PCSK9 inhibitor as an outpatient. Admission and Anticipated Discharge Date Admission Date: May 26, 2025 Supervising Physician Co-Signing Physician Notes I have personally performed a history and physical examination on the patient. I have reviewed the advance practitioner's documentation, and I agree with, and take responsibility for the plan of care. 89-year-old male presents to the emergency department with left shoulder, posterior cervical, and interscapular discomfort. Presentation atypical for angina, however, second set of high-sensitivity troponin minimally elevated. No ischemic EKG changes or regional wall motion abnormality per echocardiogram. Coronary calcifications recorded on CT. Statin intolerance documented. Not treated with low-dose aspirin prior to hospitalization due to history of traumatic brain injury with subdural hematoma. No history of spontaneous intracerebral hemorrhage. Lexiscan nuclear stress test performed earlier today negative for inducible ischemia. Normal LV systolic function. Recommend addition of low-dose aspirin, 81 mg daily and antihyperlipidemic therapy. With documented statin intolerance, consider addition of PCSK9 inhibitor as outpatient. He is open to this treatment option. Agreeable to begin treatment with Zetia for the time being. No further inpatient cardiac te sting intervention recommended at this time. Outpatient cardiology follow-up in 4 to 6 weeks. Contreras Hermosillo DO [facility] Subjective Patient seen and examined. Chart, medications, and telemetry reviewed. Patient notes feeling great, without further left shoulder or chest discomfort. No difficulty breathing. No palpitations. No cough, orthopnea, PND, or peripheral edema. Review of Systems Review of Systems: Complete Review of Systems is as stated above, negative, or noncontributory Physical Exam Physical Exam: General: NAD. HENT: Normocephalic. Atraumatic. Eyes: PER. Conjunctiva pink, sclera clear. Neck: Carotid bruits. No JVD. Heart: RRR 60 bpm. Grade II/ systolic murmur at the lower left sternal border. Lungs: Right lower lobe rhonchi, resolved post cough. Otherwise, clear to auscultation. Abdomen: +BS. Soft. Nontender. No masses or organomegaly. Extremities: No clubbing, cyanosis, or edema. Limited neurological examination is without focal deficits. Pulses: Posterior tibial=2/4. Results & Data Vital Signs (Past 12 Hours) Vital Signs Temp Pulse Pulse Resp BP Pulse Ox O2 Del Method 05/27/25 08:06 36.7 C 53 L 18 110/59 L 94 Room Air 05/27/25 07:01 56 L 05/27/25 05:58 94 H 05/27/25 04:15 36.3 C L 58 L 18 118/65 93 Room Air 05/26/25 23:18 36.5 C 58 L 18 104/64 93 Room Air 05/26/25 23:00 56 L 05/26/25 23:00 Room Air Laboratory Results Cardiac Enzymes 05/26/25 05/26/25 Range/Units 10:52 16:29 Troponin I High Sens 17.5 D 13.7 (0-20) pg/ml Lipids 05/26/25 Range/Units 10:52 Triglycerides 73 (0-150) mg/dl Cholesterol 212 H (0-200) mg/dl HDL Cholesterol 39 mg/dl Cholesterol/HDL Ratio 5.4 H (0-5) CBC 05/27/25 Range/Units 06:23 WBC 6.40 (4.8-10.8) K/ul RBC 4.42 L (4.70-6.10) M/uL Hgb 11.9 L (14.0-18.0) g/dL Hct 36.7 L (42.0-52.0) % Plt Count 270 (130-400) K/uL Neut # (Auto) 4.04 (1.40-6.50) K/uL Lymph # (Auto) 1.29 (1.20-3.40) K/uL [place] # (Auto) 0.87 H (0.11-0.59) K/uL Eos # (Auto) 0.15 (0.00-0.50) K/uL Baso # (Auto) 0.02 (0.00-0.20) K/uL Comprehensive Metabolic Panel 05/27/25 Range/Units 06:23 Sodium 138 (136-145) mmol/L Potassium 4.0 (3.5-5.1) mmol/L Chloride 106 (98-107) mmol/L Carbon Dioxide 25 (21-32) mmol/L BUN 26 H (6-23) mg/dl Creatinine 1.23 (0.6-1.4) mg/dl Glucose 112 H (70-99(Fasting)) mg/dl Calcium 8.6 (8.6-10.3) mg/dl Intake and Output 05/26/25 05/27/25 05/27/25 22:59 06:59 14:59 Other: Weight 66.9 kg Weight Measurement Method Built in [facility] Diagnostic Findings Telemetry: Sinus rhythm throughout. No significant bradycardia. No significant atrial or ventricular arrhythmias. PG Care Time/CCT Total # of Minutes Spent Total Time Spent with Patient: Total time spent is greater than 50% in coordination of care (as documented) at patient's floor/unit and/or counseling patient: Coding Level of Care Code 54346 SUB INP/OBS CARE 2/35MIN Diagnoses Left-sided chest pain R07.9 Elevated troponin R79.89 HTN, goal below 130/80 I10 Dyslipidemia, goal LDL below 70 E78.5 Coronary atherosclerosis I25.10 Family history of ischemic heart disease Z82.49
[2025-05-27] MEDS: REGADENOSON 0.4 MG/5 ML SYR IV ONE (11:54)
--- NOTE | 2025-05-27 12:06 | Myocardial Perfusion Study ---
Date of Service May 27, 2025 Myocardial Perfusion Study [facility] Myocardial Perfusion Study Report Indication: Atypical shoulder, neck, and upper chest discomfort with minimally elevated high-sensitivity troponin. Procedural summary: Patient performed stress test according to Lexiscan protocol for 4 minutes and 29 seconds. Workload of 1.0 METS achieved. Resting heart rate of 56 bpm charity to a maximum heart rate of 88 bpm. This value represents 66% of the maximal, age-predicted heart rate. Resting blood pressure 119/64 mmHg, charity to a maximum blood pressure of 137/76 mmHg. Symptoms: Mild lower abdominal discomfort Test terminated secondary to completion of protocol. Blood pressure response to Lexiscan: Normal Heart rate response to Lexiscan: Normal Resting ECG: Sinus bradycardia with diffuse nonspecific ST-T wave abnormality Stress ECG: No significant ST changes, no evidence of ischemia, mild accentuation of diffuse nonspecific T wave abnormality. Nuclear imaging: For the stress portion of the study 31.7 mCi of Tc 99m Cardiolite IV was injected at 10:35 AM on 05/27/2025. 30 minutes following the injection, imaging of the heart was performed in multiple projections. For the rest portion of the study 9.7 mCi of Tc 99m Cardiolite was injected IV at 8:55 AM. 1 hour following the injection, imaging of the heart was performed in the same projections. Raw data: Hepatic uptake of isotope tracer noted on stress rotating, raw data images. Otherwise no significant extracardiac uptake of isotope tracer visualized. Right ventricle: Not well-visualized. Resting images: There is a focal apical perfusion defect of mild intensity, otherwise normal perfusion. Defect may be related to diaphragmatic attenuation for normal apical thinning. Stress images: There is a focal, apical perfusion defect of mild intensity, otherwise normal perfusion. Defect may be related to diaphragmatic attenuation, ramp filter artifact related to hepatic uptake, or normal apical thinning. The apical perfusion defect appears fixed with compared to resting images. There are no reversible perfusion defects to suggest ischemia. Conclusion: 1. Lexiscan nuclear myocardial perfusion imaging study is negative for inducible ischemia. 2. Gated SPECT imaging demonstrates normal myocardial wall motion and thickening. 3. To calculate left ventricular ejection fraction is 60%. Contreras Hermosillo DO, [facility] Myocardial perfusion code Procedure Code Procedure 1: Myocardial Perfusion Codes: 92297 Cardiovascular Stress Test, multiple Procedure 2: Myocardial Perfusion Codes: 68663 Cardiovascular Stress Test, supervision only Procedure 3: Myocardial Perfusion Codes: 53767 Cardiovascular Stress Test, interpretation and report
--- NOTE | 2025-05-27 12:28 | Discharge Summary ---
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 Tonight around 8 PM patient was sitting in his recliner when he noticed left shoulder pain it was coming down to the left side of the chest. He tried to walk hoping the chest pain will go away but it did not subsided when he decided to come to the ER. His EKG and troponins unremarkable. Initially his chest pain subsided on its own. But then chest pain came back and was radiating to his back. ER gave a dose of IV fentanyl and CTA chest was done. CTA chest came back unremarkable. With the pain medication pain is currently resolved but seems to be coming back. Denies any shortness of breath. Currently no cough. No nausea. No sweating. No dizziness. No runny nose. Appetite is okay. No abdominal pain. Normal bowel and bladder movements. Ambulated in the ER room okay. Resting comfortably and hemodynamics are okay. is in the room. Past medical history. As mentioned above. Past surgical history. Cystoscopy. Left eye lower lid repair. Left craniotomy and evacuation of subdural hematoma November 2023. Laryngoscopic biopsy in April 2024. Appendectomy 1950. Tonsillectomy and adenoidectomy. Social history. . No smoking. Alcohol rarely. No drug use. Family history. Mother had chronic rhinitis. Father had DE at age of 42. Paternal grandfather had diabetes. Principal Diagnosis Chest pain, ACS ruled out Discharge Data Allergies Allergy/AdvReac Type Severity Reaction Status Date / Time Svxlivv-CPS-[id number] Reductase AdvReac Intermediate Muscle Pain Verified 05/26/25 06:23 Inhibitor Consultations 05/26/25 01:45 ED Decision to Admit Stat 05/26/25 08:00 Consult Cardiology Routine Ordered Studies 05/26/25 01:46 CTA chest dissec wo/w con [CT angio chest dissec wo/w con] Stat Hospital Course (1) Left-sided chest pain: 89-year-old male with past medical history significant for type 2 diabetes currently not on any medication, dyslipidemia intolerant to statin, abdominal aortic aneurysm, history of fall in his barn in November 2023 causing subdural hematoma and was life flighted to [place] status post craniectomy and excavation of the hematoma, 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 High sensitive troponin was 12.9; up trended to 25.3 and down trended. Resting echocardiography with preserved LV systolic function without regional wall motion abnormality. CT imaging of the chest notable for significant coronary atherosclerosis. Patient underwent Lexiscan nuclear test on May 27, 2025; negative for inducible ischemia. Patient was started on aspirin and Zetia. Discussion was done with patient regarding following up with cardiology regarding consideration for PCSK9 inhibitor. His A1c was found to be 6.8%; patient to follow-up with primary care doctor to discuss possibly starting metformin. Please note the above document was generated using voice recognition software. It may contain grammatical, syntax or spelling errors. Any formal questions or concerns about the content, text or information contained within the body of this dictation should be directly addressed to the provider for clarification Total Time Total Time Spent Total Time Spent (In Minutes): 45 Total Time Includes: Examination of the Patient, Discharge Planning, Medication Reconciliation, Communication With Other Providers and Other Discharge Plan Discharge Items Patient Disposition: Home - Self-Care Reason For Visit: CHEST PAIN Discharge Diagnosis: Chest pain, ACS ruled out Condition on Discharge: Fair Activity: Resume your previous activity Non-emergency contact: Primary Care Provider Call non-emergency contact if: you have any medication questions and your symptoms worsen Follow-up/Referrals: Wesley Sales, [Primary Care Provider] - (The office will call you with an appointment.) Diet: Regular Addtl Attending Provider Instructions: You were evaluated by cardiology during the hospitalization for chest pain. Stress test was done during the hospitalization which was negative. You are prescribed Aspirin 81mg once a day and Zetia 10mg once a day. Please follow up with your PCP and discuss regarding following things: 1) Addition of PCSK9 inhibitor for elevated Cholesterol 2) Consideration of starting Metformin for Type 2 DM Pending Studies at Discharge: No Stand-Alone Forms: My [facility], Smoking Cessation Medications and DC Order Prescriptions: New aspirin [Children's Aspirin] 81 mg Tablet,Chewable 81 mg PO DAILY Qty: 30 0RF ezetimibe [Zetia] 10 mg tablet 10 mg PO DAILY Qty: 30 0RF Discharge Orders: Discharge Order (Routine); Ordered 05/27/25 Ordered By: Davey Storm Admission Data Admit Date/Time: 05/26/25 05:30 Attending Provider: Davey Storm Admit Provider: Arsen Chiang Primary Care Provider: Wesley Sales Other Providers: Arsen Chiang; Contreras Hermosillo
--- NOTE | 2025-05-27 14:03 | Electrocardiogram Report ---
Test Reason : Blood Pressure : */* mmHG Vent. Rate : 56 BPM Atrial Rate : 56 BPM P-R Int : 274 ms QRS Dur : 96 ms QT Int : 436 ms P-R-T Axes : 43 -5 71 degrees QTcB Int : 420 ms Sinus bradycardia with 1st degree A-V block Nonspecific T wave abnormality Abnormal ECG When compared with ECG of 26-May-2025 08:48, No significant change was found Confirmed by Sanket Joy ([id number]) on 05/27/2025 2:02:47 PM Referred By: REFERRED SELF Confirmed By: Sanket Joy
[2025-05-27 14:12] VITALS: PULSE 74
== END 2025-05-27 14:12 | disposition home or self-care (01) ==
LOC: ED 00:05 → EDINP 00:05 → SUATTDRO 05:30 → 2N 06:21